=== PATIENT | male | born 1940 | race Caucasian/White ===

== ENCOUNTER 2018-03-21 10:41 | Day surgery (SDC) | payer MEDICARE, BC ==
[~2018-03-21] VITALS: Ht 180.3 cm; Wt 99.6 kg
[2018-03-21] VITALS (12 sets, daily range): BP systolic 147–174; BP diastolic 76–96
[2018-03-21] MEDS ORDERED: normal saline 1000ml 1,000 ML IV SCH (11:10)
[2018-03-21] MEDS ORDERED: diphenhydrAMINE 25mg capsule PO PRN (11:10)
[2018-03-21] MEDS ORDERED: LORazepam 0.5 MG tablet PO PRN (11:10)
[2018-03-21] MEDS ORDERED: nitroGLYCERIN 0.4mg SUBLingual tab SL PRN (11:10)
[2018-03-21] MEDS ORDERED: CHOL10002 PO (11:13)
[2018-03-21] MEDS ORDERED: ATOR80TA PO (11:13)
[2018-03-21] MEDS ORDERED: FISH1CAP15 PO (11:13)
[2018-03-21] MEDS ORDERED: ASPI81TA52 PO (11:13)
[2018-03-21] MEDS ORDERED: OMEP-271 PO (11:13)
[2018-03-21] MEDS ORDERED: VERA240T PO (11:13)
[2018-03-21] MEDS ORDERED: MULT-1085 PO (11:13)
[2018-03-21] MEDS ORDERED: MELO-102 PO (11:13)
[2018-03-21 11:27] LABS: BASOPHILS % (AUTO) 0.5 % (0-1); EOSINOPHILS # (AUTO) 0.1 X10'3 (0-0.9); EOSINOPHILS % (AUTO) 0.8 % (0-6); HEMATOCRIT 51.5 % (42.0-52.0); HEMOGLOBIN 17.4 g/dl (14.0-17.9); LYMPHOCYTES # (AUTO) 2.6 X10'3 (1.1-4.8); LYMPHOCYTES % (AUTO) 27.3 % (21-51); MEAN CORPUSCULAR HEMOGLOBIN 30.5 PG (27.0-31.0); MEAN CORPUSCULAR HGB CONC 33.7 % (33.0-36.5); MEAN CORPUSCULAR VOLUME 90.6 FL (78-98); MEAN PLATELET VOLUME 7.7 FL (7.4-10.4); MONOCYTES # (AUTO) 0.6 X10'3 (0-0.9); MONOCYTES % (AUTO) 6.9 % (2-12); NEUTROPHILS # (AUTO) 6.1 X10'3 (1.8-7.7); NEUTROPHILS % (AUTO) 64.5 % (42-75); PLATELET COUNT 193 X10'3 (140-440); RED BLOOD COUNT 5.68 X10'6 (4.70-6.10); RED CELL DISTRIBUTION WIDTH 14.6 % (11.5-14.5); WHITE BLOOD COUNT 9.4 X10'3 (4.5-11.0)
[2018-03-21 11:35] LABS: ALBUMIN 3.7 G/DL (3.4-5.0); ANION GAP 8 (8-16); BLOOD UREA NITROGEN 20 MG/DL (7-18); BUN/CREATININE RATIO 16.9 (5.4-32.0); CALCIUM 9.3 MG/DL (8.5-10.1); CHLORIDE 105 MMOL/L (99-107); CREATININE 1.18 MG/DL (0.60-1.10); GLUCOSE 111 MG/DL (70-104); POTASSIUM 4.7 MMOL/L (3.5-5.1); SODIUM 140 MMOL/L (135-145); TOTAL CARBON DIOXIDE 27.4 MMOL/L (24-32); eGFR 60 ML/MIN
[2018-03-21 11:41] LABS: INR 1.1 INR; PARTIAL THROMBOPLASTIN TIME 28 SECONDS (22-32); PROTHROMBIN TIME 10.7 SECONDS (9.0-12.0)
[2018-03-21] MEDS ORDERED: fentaNYL/PF 50MCG/1 ML 2ML syringe ONE (11:55)
[2018-03-21] MEDS ORDERED: midazolam 2 mg/2 ml injection ONE (11:55)
[2018-03-21] MEDS ORDERED: iohexol 350MG/ML 100ml bottle IV ONE (11:56)
[2018-03-21] MEDS ORDERED: iohexol 350 MG/ML 50ML vial IV ONE (11:56)
[2018-03-21] MEDS ORDERED: LIDOcaine 1% (10mg/ml)w/preservative injection 20ml MDV ONE (11:56)
[2018-03-21] MEDS ORDERED: pneumococcal 23-VAL P-sac vacc 25 mcg/0.5ml vial IMVAC ONE (17:10)
== END 2018-03-21 19:00 | disposition home or self-care (01) ==
LOC: SSTAY O 10:41
PROVIDERS: ATTEND Internal Medicine Cardiovascular Disease
DX: I25.10 Atherosclerotic heart disease of native coronary artery without angina pectoris (principal); E78.5 Hyperlipidemia, unspecified; I10 Essential (primary) hypertension; M19.90 Unspecified osteoarthritis, unspecified site; H91.8X3 Other specified hearing loss, bilateral; Z72.89 Other problems related to lifestyle; Z85.828 Personal history of other malignant neoplasm of skin; Z79.82 Long term (current) use of aspirin; Z96.642 Presence of left artificial hip joint; Z96.651 Presence of right artificial knee joint; Z87.891 Personal history of nicotine dependence; Z79.899 Other long term (current) drug therapy; Z98.890 Other specified postprocedural states
CPT/HCPCS: 36415; 71046; 80048; 85025; 85610; 85730; 93458; 99152; A6257; C1760; J1644; J2001; J2250; J3010; J7030; Q0163; Q9967; A4620; C1769